=== PATIENT | female | born 1975 | race African-American/Black ===

== ENCOUNTER → 2018-02-27 | Outpatient (CLI) | payer OTHER ==
--- NOTE | 2018-02-27 14:52 | REPMRS ---
Patient History The patient states she had a clinical breast exam in August 2017. Family history of breast cancer in maternal aunt. Retro-pectoral saline implants in both breasts, 2007. 2D only. Digital Mammo Screening Bilat: February 27, 2018 - Exam #: [id number] Bilateral CC and MLO view(s) were taken. Technologist: Mouna Dale, Technologist No prior studies available for comparison. FINDINGS: There are scattered fibroglandular densities. The visualized implant margins are smooth. Breast parenchymal density pattern is essentially symmetric. No dominant mass, clustered microcalcification, or architectural distortion is evident on either side. Assessment: BI-RADS/ACR category 2 mammogram. Benign finding(s). Recommendation Routine screening mammogram of both breasts in 1 year (for women over age 40). This patient's Lifetime Breast Cancer RIsk is estimated at 12.9 %. This mammogram was interpreted with the aid of an FDA-approved computer-aided dectection system. Electronically Signed By: Nolan Busby MD 02/27/18 [id number]
== END ==
LOC: M RAD 13:14
PROVIDERS: ATTEND Nurse Practitioner
DX: Z12.31 Encounter for screening mammogram for malignant neoplasm of breast (principal); Z80.3 Family history of malignant neoplasm of breast; Z98.82 Breast implant status